=== PATIENT | female | born 1965 | race Caucasian/White ===

== ENCOUNTER 2017-12-24 08:08 | Emergency (ER) | payer OTHER ==
[~2017-12-24] VITALS: Ht 157.5 cm; Wt 118.2 kg
[~2017-12-24 08:08] MED LIST: DOCUSATE SODIU100 MG PO; ENDOCET 5-3251 EACH PO; IRON325 M1 PO; PROZAC20 MG PO
[2017-12-24] MEDS ORDERED: PERCOCET 5/31 TABLET PO (09:48)
[2017-12-24 10:03] VITALS: BP 135/89
[2017-12-29] MEDS ORDERED: OMEPRAZOLE20 M2 PO (13:11)
== END 2017-12-24 10:19 | disposition home or self-care (01) ==
LOC: EME 08:08
DX: S82.832A Other fracture of upper and lower end of left fibula, initial encounter for closed fracture (principal); S82.852A Displaced trimalleolar fracture of left lower leg, initial encounter for closed fracture; S93.02XA Subluxation of left ankle joint, initial encounter; X50.1XXA Overexertion from prolonged static or awkward postures, initial encounter; W10.9XXA Fall (on) (from) unspecified stairs and steps, initial encounter; Y93.9 Activity, unspecified; Z90.5 Acquired absence of kidney
CPT/HCPCS: 73590; 73610; 99281; 99284

== ENCOUNTER 2018-01-01 10:21 | Day surgery (SDC) | payer OTHER ==
[~2018-01-01] VITALS: Ht 157.5 cm; Wt 118.2 kg
[~2018-01-01 10:21] MED LIST changes: +OMEPRAZOLE20 M2 PO; +PERCOCET 5/31 TABLET PO
[2018-01-01 11:34] VITALS: BP 141/87
[2018-01-01 18:51] VITALS: BP 144/67
[2018-01-01 19:54] VITALS: BP 159/72
== END 2018-01-01 19:55 | disposition home or self-care (01) ==
LOC: SDC 10:21
DX: S82.852A Displaced trimalleolar fracture of left lower leg, initial encounter for closed fracture (principal); F41.9 Anxiety disorder, unspecified; K21.9 Gastro-esophageal reflux disease without esophagitis; Z85.528 Personal history of other malignant neoplasm of kidney; Z90.5 Acquired absence of kidney; Z87.891 Personal history of nicotine dependence; W10.8XXA Fall (on) (from) other stairs and steps, initial encounter; Y93.01 Activity, walking, marching and hiking; Y92.009 Unspecified place in unspecified non-institutional (private) residence as the place of occurrence of the external cause
CPT/HCPCS: 73600; 73610; 76000; C1713; J0690; J1100; J1170; J2250; J2405; J2795; J3010